=== PATIENT | female | born 1955 | race Caucasian/White ===

== ENCOUNTER 2018-12-11 12:30 | Outpatient (CLI) | payer MEDICARE, OTHER ==
--- NOTE | 2018-12-12 08:28 | MMO ---
Bilateral MAMMO Bilat Screen [facility]. CLINICAL HISTORY: Patient is 63 years old and is seen for screening. The patient has the following family history of breast cancer: maternal aunt. The patient has no personal history of cancer. The patient has a history of right Cyst Aspiration at age 11 - benign - 3 cysts removed. VIEWS: The views performed were: bilateral craniocaudal and bilateral mediolateral oblique. FILMS COMPARED: The present examination has been compared to prior imaging studies performed at [facility] on 11/06/2011 and 11/07/2012, and at [facility] on 06/27/2006, 09/13/2007 and 09/14/2008. MAMMOGRAM FINDINGS: There are scattered fibroglandular densities. There are benign appearing calcifications seen in the right breast. There are no suspicious masses, calcifications or areas of architectural distortion. IMPRESSION: CALCIFICATIONS IN THE RIGHT BREAST ARE BENIGN. A ROUTINE FOLLOW-UP MAMMOGRAM IN 1 YEAR IS RECOMMENDED. THE RESULTS OF THIS EXAM WERE SENT TO THE PATIENT. ACR BI-RADS Category 2 - Benign finding MAMMOGRAPHY NOTE: 1. A negative mammogram report should not delay a biopsy if a dominant of clinically suspicious mass is present. 2. Approximately 10% to 15% of breast cancers are not detected by mammography. 3. Adenosis and dense breasts may obscure an underlying neoplasm.
== END 2018-12-11 12:31 | disposition home or self-care (01) ==
LOC: BICMAMMO 12:30
PROVIDERS: ATTEND Family Medicine
DX: Z12.31 Encounter for screening mammogram for malignant neoplasm of breast (principal); R92.1 Mammographic calcification found on diagnostic imaging of breast; Z80.3 Family history of malignant neoplasm of breast
CPT/HCPCS: 77063; 77067

== ENCOUNTER 2021-03-03 11:02 | Outpatient (CLI) | payer MEDICARE, OTHER | END 2021-03-03 11:03 | disposition home or self-care (01) | LOC: BICMAMMO 11:02 | PROVIDERS: ATTEND Family Medicine | DX: Z12.31 Encounter for screening mammogram for malignant neoplasm of breast (principal); Z98.890 Other specified postprocedural states | CPT/HCPCS: 77063; 77067 ==

== ENCOUNTER 2022-10-29 03:58 | Inpatient (IN) | payer MEDICARE, OTHER ==
[2022-10-29] MEDS ORDERED: Albuterol 2.5 MG/0.5 ML NEB ONE (04:32)
[2022-10-29 04:58] LABS: #Lymphocytes 1.9 thou/uL (1.20-3.40); #Monocytes 0.4 thou/uL (0.11-0.59); %Basophils 0.5 % (0.0-1.0); %Eosinophils 0.2 % (0.0-10.0); %Lymphocytes 20.3 % (21.0-51.0); %Monocytes 4.6 % (0.0-10.0); %Neutrophils 74.4 % (42.0-75.0); Hemoglobin 16.3 g/dL (12.0-16.0); Mean Corpuscular HGB CONC 33.3 g/dL (32.0-36.0); Mean Corpuscular Hemoglobin 31.1 pg (27.0-31.0); Mean Corpuscular Volume 93.4 fl (78.0-98.0); Mean Platelet Volume 9.4 fL (7.4-10.4); Platelet Count 213 10x3/uL (130-400); RBC Distribution Width 13.2 % (11.5-14.5); Red Blood Cell (RBC) Count 5.24 mill/uL (4.20-5.40); White Blood Cell (WBC) Count 9.5 10x3/uL (4.8-10.8)
[2022-10-29 05:25] LABS: SARS-CoV-2 NAA Rapid Test Not Detected (NotDetected)
[2022-10-29 06:49] LABS: ALT (SGPT) 24 U/L (8-55); AST (SGOT) 30 U/L (5-34); Albumin 3.7 g/dL (3.4-4.8); Alkaline Phosphatase 67 U/L (40-110); Anion Gap 14 mmol/L (10-20); BUN (Urea Nitrogen) 16 mg/dL (9.8-20.1); Bilirubin, Total 0.2 mg/dL (0.2-1.2); Calc. Creatinine Clearance 0 mL/min (70-130); Calcium 8.9 mg/dL (7.8-10.44); Carbon Dioxide 23 mmol/L (23-31); Chloride 108 mmol/L (98-107); Estimated GFR 62; Glucose 129 mg/dL (80-115); Magnesium 1.8 mg/dL (1.6-2.6); Potassium 3.9 mmol/L (3.5-5.1); Protein, Total 6.7 g/dL (5.8-8.1); Sodium 141 mmol/L (136-145)
[2022-10-29] MEDS ORDERED: Ipratropium/Albuterol 3 ML NEB NEB PRN (08:29)
[2022-10-29] MEDS ORDERED: guaiFENesin 200 MG TAB PO PRN (08:29)
[2022-10-29] MEDS ORDERED: Ondansetron PF 4 MG/2 ML Vial IVP PRN (08:30)
[2022-10-29] MEDS ORDERED: Acetaminophen 325 MG TAB PO PRN (08:30)
[2022-10-29] MEDS ORDERED: predniSONE 20 MG TAB PO SCH (08:30)
[2022-10-29] MEDS ORDERED: Senokot S 8.6-50 MG TAB PO PRN (08:30)
[2022-10-29] MEDS ORDERED: Ondansetron ODT 4 MG TAB PO PRN (08:30)
[2022-10-29] MEDS: Famotidine 20 MG TAB PO SCH ×2 (10:54→20:25)
[2022-10-29] MEDS: Nicotine 21 MG PATCH TD SCH (10:55)
[2022-10-29] MEDS: Ipratropium/Albuterol 3 ML NEB NEB SCH ×4 (11:09→23:55)
[2022-10-29 11:14] VITALS: BMI 21.0
[2022-10-29] MEDS: Arformoterol 15 MCG/2 ML NEB NEB SCH (19:16)
[2022-10-30] MEDS: Ipratropium/Albuterol 3 ML NEB NEB SCH ×6 (03:08→23:58)
[2022-10-30 06:30] LABS: #Lymphocytes 1.6 thou/uL (1.20-3.40); #Monocytes 0.4 thou/uL (0.11-0.59); #Neutrophils 3.6 thou/uL (1.40-6.50); %Basophils 0.4 % (0.0-1.0); %Eosinophils 0.3 % (0.0-10.0); %Lymphocytes 28.5 % (21.0-51.0); %Monocytes 6.9 % (0.0-10.0); Hemoglobin 14.4 g/dL (12.0-16.0); Mean Corpuscular HGB CONC 32.7 g/dL (32.0-36.0); Mean Corpuscular Hemoglobin 30.3 pg (27.0-31.0); Mean Corpuscular Volume 92.5 fl (78.0-98.0); Mean Platelet Volume 7.6 fL (7.4-10.4); Platelet Count 194 10x3/uL (130-400); RBC Distribution Width 12.1 % (11.5-14.5); Red Blood Cell (RBC) Count 4.75 mill/uL (4.20-5.40); White Blood Cell (WBC) Count 5.6 10x3/uL (4.8-10.8)
[2022-10-30 06:53] LABS: ALT (SGPT) 20 U/L (8-55); AST (SGOT) 14 U/L (5-34); Albumin 3.2 g/dL (3.4-4.8); Alkaline Phosphatase 63 U/L (40-110); Anion Gap 8 mmol/L (10-20); BUN (Urea Nitrogen) 18 mg/dL (9.8-20.1); Bilirubin, Total 0.5 mg/dL (0.2-1.2); Calc. Creatinine Clearance 54 mL/min (70-130); Calcium 9.2 mg/dL (7.8-10.44); Carbon Dioxide 33 mmol/L (23-31); Chloride 103 mmol/L (98-107); Estimated GFR 76; Globulin 2.9 g/dL (2.4-3.5); Glucose 96 mg/dL (80-115); Potassium 4.1 mmol/L (3.5-5.1); Protein, Total 6.1 g/dL (5.8-8.1); Sodium 140 mmol/L (136-145)
[2022-10-30] MEDS: Arformoterol 15 MCG/2 ML NEB NEB SCH ×2 (06:58→18:56)
[2022-10-30] MEDS: Famotidine 20 MG TAB PO SCH (09:21)
[2022-10-30] MEDS: Nicotine 21 MG PATCH TD SCH (09:22)
[2022-10-30] MEDS: methylPREDNISolone Sod Succ 40 MG VIAL IVP SCH ×2 (10:19→20:59)
[2022-10-30] MEDS: guaiFENesin ER 600 MG TAB PO SCH ×2 (10:19→20:59)
[2022-10-30] MEDS ORDERED: Acetaminophen/Codeine 30-300mg Tablet PO PRN (15:38)
[2022-10-30] MEDS ORDERED: Temazepam 15 MG CAP PO PRN (15:53)
[2022-10-30] MEDS ORDERED: Sertraline 100 MG TAB PO SCH (21:00)
[2022-10-30] MEDS ORDERED: Atorvastatin Calcium 10 MG TAB PO SCH (21:00)
[2022-10-31] MEDS: Ipratropium/Albuterol 3 ML NEB NEB SCH ×3 (03:44→10:56)
[2022-10-31] MEDS: Arformoterol 15 MCG/2 ML NEB NEB SCH (06:34)
[2022-10-31 07:43] LABS: #Lymphocytes 0.9 thou/uL (1.20-3.40); #Monocytes 0.3 thou/uL (0.11-0.59); #Neutrophils 5.5 thou/uL (1.40-6.50); %Lymphocytes 14.1 % (21.0-51.0); %Monocytes 3.9 % (0.0-10.0); %Neutrophils 81.9 % (42.0-75.0); Mean Corpuscular HGB CONC 34.2 g/dL (32.0-36.0); Mean Corpuscular Volume 93.6 fl (78.0-98.0); Platelet Count 214 10x3/uL (130-400); Red Blood Cell (RBC) Count 5.01 mill/uL (4.20-5.40); White Blood Cell (WBC) Count 6.7 10x3/uL (4.8-10.8)
[2022-10-31 07:53] LABS: ALT (SGPT) 19 U/L (8-55); AST (SGOT) 14 U/L (5-34); Albumin 3.6 g/dL (3.4-4.8); Alkaline Phosphatase 63 U/L (40-110); Anion Gap 15 mmol/L (10-20); BUN (Urea Nitrogen) 24 mg/dL (9.8-20.1); Bilirubin, Total 0.6 mg/dL (0.2-1.2); Calc. Creatinine Clearance 55 mL/min (70-130); Calcium 9.7 mg/dL (7.8-10.44); Carbon Dioxide 29 mmol/L (23-31); Chloride 100 mmol/L (98-107); Estimated GFR 80; Globulin 3.1 g/dL (2.4-3.5); Glucose 109 mg/dL (80-115); Potassium 4.6 mmol/L (3.5-5.1); Protein, Total 6.7 g/dL (5.8-8.1); Sodium 139 mmol/L (136-145)
[2022-10-31 08:28] VITALS: BP 124/57; TEMP 97.6
[2022-10-31] MEDS: methylPREDNISolone Sod Succ 40 MG VIAL IVP SCH (08:43)
[2022-10-31] MEDS: guaiFENesin ER 600 MG TAB PO SCH (08:43)
[2022-10-31] MEDS: Nicotine 21 MG PATCH TD SCH (08:43)
[2022-10-31] MEDS ORDERED: Cholecalciferol 1,000 UNITS (25 MCG) TAB PO SCH (09:00)
[2022-10-31] MEDS ORDERED: Amlodipine 10 MG TAB PO SCH (09:00)
[2022-10-31] MEDS ORDERED: Aspirin Chewable 81 MG TAB PO SCH (09:00)
== END 2022-10-31 12:28 | disposition home or self-care (01) | DRG 189 ==
LOC: SUATTDRO 03:58 → ERS 03:58 → ERHOLD 08:07 → T4-A 10:26 → OBSVTOIN 10-30 15:13
PROVIDERS: ADMIT Internal Medicine; ATTEND Family Medicine
DX: J96.21 Acute and chronic respiratory failure with hypoxia (principal); J44.1 Chronic obstructive pulmonary disease with (acute) exacerbation; I10 Essential (primary) hypertension; F17.210 Nicotine dependence, cigarettes, uncomplicated; F43.10 Post-traumatic stress disorder, unspecified; F41.9 Anxiety disorder, unspecified; E78.5 Hyperlipidemia, unspecified; Z79.51 Long term (current) use of inhaled steroids; Z79.82 Long term (current) use of aspirin; Z79.899 Other long term (current) drug therapy; Z98.890 Other specified postprocedural states; Z90.710 Acquired absence of both cervix and uterus; Z90.49 Acquired absence of other specified parts of digestive tract; Z98.42 Cataract extraction status, left eye; Z98.41 Cataract extraction status, right eye; Z82.49 Family history of ischemic heart disease and other diseases of the circulatory system; Z20.822 Contact with and (suspected) exposure to COVID-19; Z99.81 Dependence on supplemental oxygen
CPT/HCPCS: 36415; 71045; 80053; 83735; 83880; 84484; 85025; 93005; 94640; 96372; 96374; 96375; G0378; J1650; J1956; J2920; J7512; J7611; J7620; U0002

== ENCOUNTER 2022-12-14 23:24 | Emergency (ER) | payer MEDICARE, OTHER ==
[2022-12-14] MEDS ORDERED: Magnesium 2 GM/50 ML BAG (IN WATER) ONE (23:47)
[2022-12-14] MEDS ORDERED: Ipratropium/Albuterol 3 ML NEB ONE (23:47)
[2022-12-15 00:13] LABS: #Eosinphils 0.1 thou/uL (0.0-0.7); #Lymphocytes 0.7 thou/uL (1.20-3.40); #Monocytes 0.2 thou/uL (0.11-0.59); #Neutrophils 5.3 thou/uL (1.40-6.50); %Basophils 0.2 % (0.0-1.0); %Eosinophils 1.7 % (0.0-10.0); %Lymphocytes 10.8 % (21.0-51.0); %Monocytes 3.6 % (0.0-10.0); %Neutrophils 83.6 % (42.0-75.0); Hemoglobin 13.7 g/dL (12.0-16.0); Mean Corpuscular HGB CONC 31.5 g/dL (32.0-36.0); Mean Corpuscular Hemoglobin 28.5 pg (27.0-31.0); Mean Corpuscular Volume 90.6 fl (78.0-98.0); Mean Platelet Volume 8.9 fL (7.4-10.4); Platelet Count 182 10x3/uL (130-400); RBC Distribution Width 14.6 % (11.5-14.5); White Blood Cell (WBC) Count 6.4 10x3/uL (4.8-10.8)
[2022-12-15 00:34] LABS: ALT (SGPT) 17 U/L (8-55); AST (SGOT) 18 U/L (5-34); Albumin 3.4 g/dL (3.4-4.8); Alkaline Phosphatase 70 U/L (40-110); Anion Gap 11 mmol/L (10-20); BUN (Urea Nitrogen) 15 mg/dL (9.8-20.1); Bilirubin, Total 0.7 mg/dL (0.2-1.2); Calc. Creatinine Clearance 0 mL/min (70-130); Calcium 8.8 mg/dL (7.8-10.44); Carbon Dioxide 32 mmol/L (23-31); Chloride 102 mmol/L (98-107); Estimated GFR 66; Glucose 127 mg/dL (80-115); Lipase 28 U/L (8-78); Magnesium 1.8 mg/dL (1.6-2.6); Potassium 3.9 mmol/L (3.5-5.1); Protein, Total 6.4 g/dL (5.8-8.1); Sodium 141 mmol/L (136-145)
[2022-12-15 03:48] LABS: SARS-CoV-2 NAA Rapid Test Not Detected (NotDetected)
== END 2022-12-15 01:50 | disposition home or self-care (01) ==
LOC: ERS 23:24
DX: J18.9 Pneumonia, unspecified organism (principal); J44.1 Chronic obstructive pulmonary disease with (acute) exacerbation; E78.00 Pure hypercholesterolemia, unspecified; I10 Essential (primary) hypertension; F17.210 Nicotine dependence, cigarettes, uncomplicated; Z20.822 Contact with and (suspected) exposure to COVID-19
CPT/HCPCS: 71045; 80053; 83690; 83735; 85025; 93005; 96365; 99284; U0002; 36415; J3475; J7620

== ENCOUNTER 2023-04-23 10:22 | Inpatient (IN) | payer MEDICARE, OTHER ==
[2023-04-23 10:58] LABS: Actual Bicarbonate (HCO3v) 26.9 mEq/L (22-28); Analyzer IN Cardio ER; Base Excess 1.7 mEq/L (-2.0 to +3.0); Calcium, Ionized (venous) 1.01 mmol/L (1.16-1.32); Chloride (VBG) 102 mmol/L (98-106); Hematocrit-VBG 45 % (36.0-47.0); Hemoglobin (Hb) 15.2 g/dL (11.7-16.1); Potassium (VBG) 4.46 mmol/L (3.70-5.30); Sodium 137.4 mmol/L (133-146)
[2023-04-23 11:02] LABS: #Eosinphils 0.1 thou/uL (0.0-0.7); #Monocytes 0.5 thou/uL (0.11-0.59); %Basophils 0.7 % (0.0-1.0); %Lymphocytes 19.7 % (21.0-51.0); %Monocytes 9.4 % (0.0-10.0); %Neutrophils 68.7 % (42.0-75.0); Hemoglobin 13.9 g/dL (12.0-16.0); Mean Corpuscular HGB CONC 29.9 g/dL (32.0-36.0); Mean Corpuscular Hemoglobin 24.3 pg (27.0-31.0); Mean Corpuscular Volume 81.4 fl (78.0-98.0); Mean Platelet Volume 9.8 fL (7.4-10.4); Platelet Count 198 10x3/uL (130-400); RBC Distribution Width 17.4 % (11.5-14.5); Red Blood Cell (RBC) Count 5.71 mill/uL (4.20-5.40); White Blood Cell (WBC) Count 5.8 10x3/uL (4.8-10.8)
[2023-04-23] MEDS ORDERED: methylPREDNISolone Sod Succ/PF 125 MG/2 ML VIAL ONE (11:04)
[2023-04-23] MEDS ORDERED: Magnesium 2 GM/50 ML BAG (IN WATER) ONE (11:04)
[2023-04-23 11:26] LABS: ALT (SGPT) 16 U/L (8-55); AST (SGOT) 20 U/L (5-34); Albumin 3.6 g/dL (3.4-4.8); Alkaline Phosphatase 79 U/L (40-110); Anion Gap 16 mmol/L (10-20); BUN (Urea Nitrogen) 20 mg/dL (9.8-20.1); Bilirubin, Total 0.8 mg/dL (0.2-1.2); Calc. Creatinine Clearance 0 mL/min (70-130); Carbon Dioxide 25 mmol/L (23-31); Chloride 100 mmol/L (98-107); Estimated GFR 78; Globulin 3.4 g/dL (2.4-3.5); Glucose 99 mg/dL (80-115); Potassium 4.2 mmol/L (3.5-5.1); Sodium 137 mmol/L (136-145)
[2023-04-23 11:43] LABS: SARS-CoV-2 NAA Rapid Test Not Detected (NotDetected)
[2023-04-23] MEDS ORDERED: cefTRIAXone (ROCEPHIN) 2 GM VIAL ONE (12:22)
[2023-04-23] MEDS ORDERED: Azithromycin 500 MG VIAL ONE (12:22)
[2023-04-23 15:45] VITALS: BMI 20.4
[2023-04-23] MEDS ORDERED: Ondansetron PF 4 MG/2 ML Vial IVP PRN (15:51)
[2023-04-23] MEDS ORDERED: Acetaminophen 650 MG Suppository PR PRN (15:51)
[2023-04-23] MEDS ORDERED: Ondansetron ODT 4 MG TAB PO PRN (15:51)
[2023-04-23] MEDS ORDERED: Acetaminophen 325 MG TAB PO PRN (15:51)
[2023-04-23] MEDS: methylPREDNISolone Sod Succ 40 MG VIAL IVP SCH (16:40)
[2023-04-23 17:16] LABS: Base Excess 2.6 mEq/L (-2.0 to +3.0); Calcium, Ionized (venous) 1.02 mmol/L (1.16-1.32); Chloride (VBG) 100 mmol/L (98-106); Hematocrit-VBG 43 % (36.0-47.0); Hemoglobin (Hb) 14.5 g/dL (11.7-16.1); Potassium (VBG) 4.39 mmol/L (3.70-5.30); Sodium 136.3 mmol/L (133-146); pH (venous) 7.369 (7.32-7.43)
[2023-04-23] MEDS: Ipratropium/Albuterol 3 ML NEB NEB SCH (19:01)
[2023-04-23 21:10] VITALS: BP 103/59
[2023-04-23] MEDS ORDERED: Benzonatate 100 MG CAP PO PRN (22:12)
[2023-04-23] MEDS ORDERED: Ipratropium/Albuterol 3 ML NEB NEB PRN (22:17)
[2023-04-24] MEDS: methylPREDNISolone Sod Succ 40 MG VIAL IVP SCH ×4 (01:24→17:32)
[2023-04-24] MEDS: Ipratropium/Albuterol 3 ML NEB NEB SCH ×5 (01:49→22:20)
[2023-04-24 04:23] LABS: #Monocytes 0.2 thou/uL (0.11-0.59); #Neutrophils 2.1 thou/uL (1.40-6.50); %Basophils 0.4 % (0.0-1.0); %Lymphocytes 12.5 % (21.0-51.0); %Monocytes 5.7 % (0.0-10.0); Hemoglobin 12.9 g/dL (12.0-16.0); Mean Corpuscular HGB CONC 29.7 g/dL (32.0-36.0); Mean Corpuscular Hemoglobin 23.8 pg (27.0-31.0); Mean Corpuscular Volume 80.4 fl (78.0-98.0); Platelet Count 190 10x3/uL (130-400); RBC Distribution Width 17.3 % (11.5-14.5); Red Blood Cell (RBC) Count 5.41 mill/uL (4.20-5.40); White Blood Cell (WBC) Count 2.6 10x3/uL (4.8-10.8)
[2023-04-24 04:38] LABS: Anion Gap 16 mmol/L (10-20); BUN (Urea Nitrogen) 26 mg/dL (9.8-20.1); Calc. Creatinine Clearance 49 mL/min (70-130); Calcium 8.8 mg/dL (7.8-10.44); Carbon Dioxide 27 mmol/L (23-31); Chloride 102 mmol/L (98-107); Estimated GFR 68; Glucose 127 mg/dL (80-115); Potassium 4.6 mmol/L (3.5-5.1); Sodium 140 mmol/L (136-145)
[2023-04-24] MEDS: Famotidine 20 MG TAB PO SCH ×2 (09:01→19:54)
[2023-04-24] MEDS ORDERED: Azithromycin 500 MG in Sodium Chloride 0.9% 250 ML 250 ML IVPB SCH (13:00)
[2023-04-24] MEDS: cefTRIAXone\\ROCEPHIN 1 GM in Sodium Chloride 0.9% 100 ML IVPB SCH (13:15)
[2023-04-25] MEDS: methylPREDNISolone Sod Succ 40 MG VIAL IVP SCH ×3 (00:14→11:22)
[2023-04-25 04:09] LABS: #Monocytes 0.1 thou/uL (0.11-0.59); #Neutrophils 5.1 thou/uL (1.40-6.50); %Monocytes 2.5 % (0.0-10.0); Hemoglobin 13.1 g/dL (12.0-16.0); Mean Corpuscular HGB CONC 29.3 g/dL (32.0-36.0); Mean Corpuscular Hemoglobin 23.8 pg (27.0-31.0); Mean Corpuscular Volume 81.1 fl (78.0-98.0); Mean Platelet Volume 10.6 fL (7.4-10.4); Platelet Count 212 10x3/uL (130-400); RBC Distribution Width 17.4 % (11.5-14.5); Red Blood Cell (RBC) Count 5.51 mill/uL (4.20-5.40); White Blood Cell (WBC) Count 5.6 10x3/uL (4.8-10.8)
[2023-04-25 04:30] LABS: Anion Gap 14 mmol/L (10-20); BUN (Urea Nitrogen) 24 mg/dL (9.8-20.1); Calc. Creatinine Clearance 54 mL/min (70-130); Calcium 9.4 mg/dL (7.8-10.44); Carbon Dioxide 27 mmol/L (23-31); Chloride 102 mmol/L (98-107); Estimated GFR 81; Glucose 131 mg/dL (80-115); Potassium 4.6 mmol/L (3.5-5.1); Sodium 138 mmol/L (136-145)
[2023-04-25 07:14] VITALS: TEMP 98.4
[2023-04-25] MEDS: Ipratropium/Albuterol 3 ML NEB NEB SCH ×2 (07:21→13:19)
[2023-04-25] MEDS: Famotidine 20 MG TAB PO SCH (09:14)
[2023-04-25] MEDS: cefTRIAXone\\ROCEPHIN 1 GM in Sodium Chloride 0.9% 100 ML IVPB SCH (11:22)
== END 2023-04-25 14:00 | disposition home or self-care (01) | DRG 193 ==
LOC: ERS 10:22 → T4-A 15:12 → IMCU/EMU 21:17
PROVIDERS: ADMIT Internal Medicine; ATTEND Family Medicine
PROC: 4A043R1 Measurement of Venous Saturation, Peripheral, Percutaneous Approach (ICD-10-PCS; principal; 2023-04-23)
DX: J18.9 Pneumonia, unspecified organism (principal); J96.21 Acute and chronic respiratory failure with hypoxia; J96.22 Acute and chronic respiratory failure with hypercapnia; J44.1 Chronic obstructive pulmonary disease with (acute) exacerbation; J44.0 Chronic obstructive pulmonary disease with (acute) lower respiratory infection; Q60.0 Renal agenesis, unilateral; R64 Cachexia; D75.89 Other specified diseases of blood and blood-forming organs; E78.00 Pure hypercholesterolemia, unspecified; I10 Essential (primary) hypertension; F41.9 Anxiety disorder, unspecified; F32.A Depression, unspecified; F17.210 Nicotine dependence, cigarettes, uncomplicated; F43.10 Post-traumatic stress disorder, unspecified; Z20.822 Contact with and (suspected) exposure to COVID-19; Z90.49 Acquired absence of other specified parts of digestive tract; Z90.710 Acquired absence of both cervix and uterus; Z79.899 Other long term (current) drug therapy; Z79.82 Long term (current) use of aspirin; Z98.41 Cataract extraction status, right eye; Z98.42 Cataract extraction status, left eye; Z71.6 Tobacco abuse counseling; Z99.81 Dependence on supplemental oxygen
CPT/HCPCS: 36415; 71045; 80048; 80053; 82805; 83605; 84484; 85025; 87070; 87205; 93005; 94640; 94760; 96365; 96367; 96375; J0456; J0696; J2920; J2930; J3475; J3490; J7050; J7611; J7620

== ENCOUNTER 2024-02-12 09:09 | Inpatient (IN) | payer MEDICARE, OTHER ==
[2024-02-12 10:29] LABS: Influenza A by NAA Not Detected (NotDetected); Influenza B by NAA Not Detected (NotDetected); SARS-CoV-2 NAA Rapid Test Not Detected (NotDetected)
[2024-02-12 10:39] LABS: Globulin 3.8 g/dL (2.4-3.5)
[2024-02-12 10:44] LABS: ALT (SGPT) 10 U/L (8-55); AST (SGOT) 18 U/L (5-34); Albumin 3.4 g/dL (3.4-4.8); Alkaline Phosphatase 94 U/L (40-110); Anion Gap 15 mmol/L (10-20); BUN (Urea Nitrogen) 11 mg/dL (9.8-20.1); Bilirubin, Total 0.8 mg/dL (0.2-1.2); Calc. Creatinine Clearance 0 mL/min (70-130); Calcium 9.1 mg/dL (7.8-10.44); Carbon Dioxide 24 mmol/L (23-31); Chloride 107 mmol/L (98-107); Estimated GFR 83; Glucose 134 mg/dL (80-115); Potassium 3.5 mmol/L (3.5-5.1); Protein, Total 7.2 g/dL (5.8-8.1); Sodium 142 mmol/L (136-145)
[2024-02-12 10:48] LABS: #Basophils 0.03 10x3/uL (0.0-0.2); %Basophils 0.5 % (0.0-1.0); %Eosinophils 0.7 % (0.0-10.0); %Lymphocytes 13.3 % (21.0-51.0); %Monocytes 3.2 % (0.0-10.0); %Neutrophils 81.9 % (42.0-75.0); Hematocrit 50.3 % (36.0-47.0); Hemoglobin 13.8 g/dL (12.0-16.0); Mean Corpuscular HGB CONC 27.4 g/dL (32.0-36.0); Mean Corpuscular Hemoglobin 23.1 pg (27.0-31.0); Mean Corpuscular Volume 84.1 fL (78.0-98.0); Mean Platelet Volume 11.1 fL (7.4-10.4); Platelet Count 190 10x3/uL (130-400); RBC Distribution Width 18.3 % (11.5-14.5); Red Blood Cell (RBC) Count 5.98 mill/uL (4.20-5.40)
[2024-02-12] MEDS ORDERED: Magnesium 2 GM/50 ML BAG (IN WATER) ONE (10:49)
[2024-02-12] MEDS ORDERED: Cefepime 1 GM VIAL ONE (11:02)
[2024-02-12] MEDS ORDERED: Sodium Chloride 0.9% 100 ML ONE (11:02)
[2024-02-12] MEDS ORDERED: Albuterol 2.5 MG (3 mL) NEB ONE ×2 (11:06→11:53)
[2024-02-12] MEDS ORDERED: Ipratropium Bromide 2.5 ml Neb ONE ×2 (11:07→11:53)
[2024-02-12 11:28] LABS: Platelet Adequacy Comment Platelets Normal; Polychromasia SLIGHT = 2-3 cells HPF (0-2)
[2024-02-12] MEDS ORDERED: LevoFLOXacin D5W 500 mg (100 mL) BAG ONE (11:46)
[2024-02-12 12:02] LABS: Actual Bicarbonate (HCO3a) 29.7 mEq/L (22-28); Analyzer IN Cardio ER; Base Excess (BEa) 1.1 mEq/L (-2.0 to +3.0); Carboxyhemoglobin (COHb) 7.8 gm% (0.0-3.0); Hematocrit-ABG 41 % (36.0-47.0); Hemoglobin (Hb) 13.8 g/dL (12.0-16.0); O2 Tension (PaO2), arterial 62.3 mmHg (> 80.0); Potassium - ABG Lab 3.72 mmol/L (3.70-5.30); pH, Arterial 7.272 (7.35-7.45)
[2024-02-12 12:03] LABS: CO2 Tension 65.8 mmHg (35.0-45.0); Puncture Site RBA
[2024-02-12 12:16] LABS: Troponin I Less than 0.010 ng/mL (< 0.028)
[2024-02-12 12:17] LABS: Actual Bicarbonate (HCO3a) 26.1 mEq/L (22-28); Analyzer IN Cardio ER; Base Excess (BEa) -3.1 mEq/L (-2.0 to +3.0); Calcium, Ionized (arterial) 1.18 mmol/L (1.12-1.30); Carboxyhemoglobin (COHb) 6.4 gm% (0.0-3.0); Hematocrit-ABG 39 % (36.0-47.0); Hemoglobin (Hb) 13.4 g/dL (12.0-16.0); O2 Tension (PaO2), arterial 77.2 mmHg (> 80.0); Potassium - ABG Lab 3.68 mmol/L (3.70-5.30); pH, Arterial 7.211 (7.35-7.45)
[2024-02-12 12:29] LABS: ALV-art Gradient 231.825 mmHg (0-20); CO2 Tension 66.5 mmHg (35.0-45.0); Puncture Site RBA
[2024-02-12] MEDS ORDERED: Ipratropium/Albuterol 3 ML NEB NEB PRN (13:49)
[2024-02-12] MEDS ORDERED: Acetaminophen 325 MG TAB PO PRN (13:52)
[2024-02-12] MEDS ORDERED: Senokot S 8.6-50 MG TAB PO PRN (13:52)
[2024-02-12] MEDS ORDERED: Ondansetron ODT 4 MG TAB PO PRN (13:52)
[2024-02-12] MEDS ORDERED: Ondansetron PF 4 MG/2 ML Vial IVP PRN (13:52)
[2024-02-12] MEDS ORDERED: hydrALAZINE 20 MG/ML VIAL SLOW IVP PRN (13:52)
[2024-02-12] MEDS: Ipratropium/Albuterol 3 ML NEB NEB SCH (14:51)
[2024-02-12] MEDS: methylPREDNISolone Sod Succ 40 MG VIAL IVP SCH (18:01)
[2024-02-12] MEDS: Mometasone 200 MCG/Formoterol 5 MCG 120 PUFF INHALER INH SCH (19:13)
[2024-02-12] MEDS: Famotidine 20 MG TAB PO SCH (21:09)
[2024-02-12] MEDS: Cefepime 1 GM in Sodium Chloride 0.9% 100 ML IVPB SCH (23:43)
[2024-02-13 06:32] LABS: #Basophils Less than 0.03 10x3/uL (0.0-0.2); #Eosinphils Less than 0.03 10x3/uL (0.0-0.7); %Lymphocytes 6.8 % (21.0-51.0); %Monocytes 3.4 % (0.0-10.0); %Neutrophils 89.4 % (42.0-75.0); Hematocrit 39.5 % (36.0-47.0); Hemoglobin 11.4 g/dL (12.0-16.0); Mean Corpuscular HGB CONC 28.9 g/dL (32.0-36.0); Mean Corpuscular Hemoglobin 23.4 pg (27.0-31.0); Mean Corpuscular Volume 81.1 fL (78.0-98.0); Mean Platelet Volume 10.7 fL (7.4-10.4); Platelet Count 182 10x3/uL (130-400); RBC Distribution Width 17.1 % (11.5-14.5); Red Blood Cell (RBC) Count 4.87 mill/uL (4.20-5.40)
[2024-02-13 06:43] LABS: Globulin 3.3 g/dL (2.4-3.5)
[2024-02-13 06:47] LABS: ALT (SGPT) 10 U/L (8-55); AST (SGOT) 15 U/L (5-34); Alkaline Phosphatase 80 U/L (40-110); Anion Gap 14 mmol/L (10-20); BUN (Urea Nitrogen) 17 mg/dL (9.8-20.1); Bilirubin, Total 0.7 mg/dL (0.2-1.2); Calc. Creatinine Clearance 32 mL/min (70-130); Carbon Dioxide 25 mmol/L (23-31); Chloride 105 mmol/L (98-107); Estimated GFR 85; Glucose 138 mg/dL (80-115); Magnesium 2.2 mg/dL (1.6-2.6); Protein, Total 6.3 g/dL (5.8-8.1); Sodium 140 mmol/L (136-145)
[2024-02-13 06:51] LABS: Hypochromia SLIGHT = 6-15 cells HPF (0-5); Platelet Adequacy Comment Platelets Normal; Polychromasia SLIGHT = 2-3 cells HPF (0-2)
[2024-02-13] MEDS ORDERED: ALPRAZolam 0.25 MG TAB PO PRN (12:08)
[2024-02-13] MEDS: LevoFLOXacin 500 mg/D5W 500 MG in Premix 1 BAG IVPB SCH (13:08)
[2024-02-13] MEDS: ALPRAZolam 0.25 MG TAB PO SCH (13:09)
[2024-02-13] MEDS: Pantoprazole DR 40 MG TAB PO SCH (20:34)
[2024-02-13] MEDS: Temazepam 15 MG CAP PO SCH (20:34)
[2024-02-13] MEDS: Atorvastatin Calcium 20 MG TAB PO SCH (20:34)
[2024-02-13] MEDS: Sertraline 100 MG TAB PO SCH (20:34)
[2024-02-13] MEDS: Famotidine 20 MG TAB PO SCH (20:34)
[2024-02-13] MEDS ORDERED: Non-Formulary Item 1 EACH (Omeprazole [Omeprazole] 20 MG Tablet.Dr) PO SCH (21:00)
[2024-02-13] MEDS ORDERED: Non-Formulary Item 1 EACH (Temazepam [Temazepam] 30 MG Capsule) PO SCH (21:00)
[2024-02-13] MEDS ORDERED: Atorvastatin Calcium 10 MG TAB PO SCH (21:00)
[2024-02-13] MEDS ORDERED: Non-Formulary Item 1 EACH (Sertraline Hcl [Zoloft] 50 MG Tab) PO SCH (21:00)
[2024-02-14 05:51] VITALS: BMI 11.2
[2024-02-14 07:55] LABS: #Basophils Less than 0.03 10x3/uL (0.0-0.2); #Eosinphils Less than 0.03 10x3/uL (0.0-0.7); %Lymphocytes 4.7 % (21.0-51.0); %Monocytes 2.9 % (0.0-10.0); %Neutrophils 92.1 % (42.0-75.0); Hematocrit 40.9 % (36.0-47.0); Hemoglobin 11.7 g/dL (12.0-16.0); Mean Corpuscular HGB CONC 28.6 g/dL (32.0-36.0); Mean Corpuscular Hemoglobin 22.9 pg (27.0-31.0); Mean Platelet Volume 10.9 fL (7.4-10.4); Platelet Count 206 10x3/uL (130-400); RBC Distribution Width 17.2 % (11.5-14.5); Red Blood Cell (RBC) Count 5.11 mill/uL (4.20-5.40)
[2024-02-14 08:12] LABS: ALT (SGPT) 13 U/L (8-55); AST (SGOT) 32 U/L (5-34); Albumin 2.9 g/dL (3.4-4.8); Alkaline Phosphatase 72 U/L (40-110); Anion Gap 12 mmol/L (10-20); BUN (Urea Nitrogen) 28 mg/dL (9.8-20.1); Bilirubin, Total 0.8 mg/dL (0.2-1.2); Calc. Creatinine Clearance 33 mL/min (70-130); Calcium 9.3 mg/dL (7.8-10.44); Carbon Dioxide 28 mmol/L (23-31); Chloride 106 mmol/L (98-107); Estimated GFR 88; Glucose 128 mg/dL (80-115); Potassium 4.8 mmol/L (3.5-5.1); Protein, Total 5.9 g/dL (5.8-8.1); Sodium 141 mmol/L (136-145)
[2024-02-14] MEDS ORDERED: Cholecalciferol 1,000 UNITS (25 MCG) TAB PO SCH (09:00)
[2024-02-14] MEDS: Amlodipine 10 MG TAB PO SCH (09:09)
[2024-02-14] MEDS: Cholecalciferol 1,000 UNITS (25 MCG) TAB PO SCH (09:09)
[2024-02-14] MEDS: Aspirin Chewable 81 MG TAB PO SCH (09:10)
[2024-02-14] MEDS: LevoFLOXacin 250 mg/D5W 250 MG in Premix 1 BAG IVPB SCH (12:33)
[2024-02-14] MEDS: methylPREDNISolone Sod Succ 40 MG VIAL IVP SCH (21:16)
[2024-02-16] MEDS ORDERED: Sodium Chloride 0.65% Nasal 44 ML BOT EA NARE PRN (14:17)
[2024-02-16] MEDS: guaiFENesin ER 600 MG TAB PO SCH (21:08)
[2024-02-17] MEDS: LevoFLOXacin 500 MG TAB PO SCH (05:55)
[2024-02-18] MEDS ORDERED: Ipratropium/Albuterol 3 ML NEB NEB PRN (12:15)
[2024-02-18] MEDS: Ipratropium/Albuterol 3 ML NEB NEB SCH (14:06)
[2024-02-19 08:11] VITALS: BP 118/56
[2024-02-19] MEDS: predniSONE 20 MG TAB PO SCH (08:11)
[2024-02-19 11:30] VITALS: TEMP 98
== END 2024-02-19 14:07 | disposition home health service (06) | DRG 189 ==
LOC: ERS 09:09 → IMCU/EMU 13:54 → 2NO 02-18 20:00
PROVIDERS: ADMIT Internal Medicine; ATTEND Internal Medicine
PROC: 5A09357 Assistance with Respiratory Ventilation, Less than 24 Consecutive Hours, Continuous Positive Airway Pressure (ICD-10-PCS; principal; 2024-02-13)
DX: J96.21 Acute and chronic respiratory failure with hypoxia (principal); J44.1 Chronic obstructive pulmonary disease with (acute) exacerbation; J96.22 Acute and chronic respiratory failure with hypercapnia; D75.1 Secondary polycythemia; F41.9 Anxiety disorder, unspecified; E78.5 Hyperlipidemia, unspecified; F17.210 Nicotine dependence, cigarettes, uncomplicated; I10 Essential (primary) hypertension; F43.10 Post-traumatic stress disorder, unspecified; Z90.49 Acquired absence of other specified parts of digestive tract; Z90.710 Acquired absence of both cervix and uterus; Z79.52 Long term (current) use of systemic steroids; Z99.81 Dependence on supplemental oxygen; Z79.82 Long term (current) use of aspirin; Z79.899 Other long term (current) drug therapy; Z71.6 Tobacco abuse counseling
CPT/HCPCS: 36415; 36600; 71045; 80053; 82805; 83605; 83735; 84484; 85025; 87040; 93005; 94640; 94644; 94660; 94760; 96365; 96367; J0692; J1956; J2920; J3475; J3490; J7512; J7611; J7620

== ENCOUNTER 2024-09-19 14:53 | Inpatient (IN) | payer MEDICARE, OTHER ==
[2024-09-19] MEDS ORDERED: Magnesium 2 GM/50 ML BAG (IN WATER) ONE (15:10)
[2024-09-19 15:30] LABS: #Basophils 0.03 10x3/uL (0.0-0.2); %Basophils 0.8 % (0.0-1.0); %Eosinophils 2.1 % (0.0-10.0); %Monocytes 5.4 % (0.0-10.0); %Neutrophils 72.2 % (42.0-75.0); Hematocrit 38.6 % (36.0-47.0); Hemoglobin 11.1 g/dL (12.0-16.0); Mean Corpuscular HGB CONC 28.8 g/dL (32.0-36.0); Mean Corpuscular Hemoglobin 24.4 pg (27.0-31.0); Mean Corpuscular Volume 84.8 fL (78.0-98.0); Mean Platelet Volume 10.4 fL (7.4-10.4); Platelet Count 223 10x3/uL (130-400); RBC Distribution Width 16.4 % (11.5-14.5); Red Blood Cell (RBC) Count 4.55 mill/uL (4.20-5.40)
[2024-09-19 15:44] LABS: PTT 24.5 sec (22.9-36.1); Prothrombin Time 12.9 sec (12.0-14.7)
[2024-09-19 15:47] LABS: ALT (SGPT) 6 U/L (8-55); AST (SGOT) 15 U/L (5-34); Albumin 3.1 g/dL (3.4-4.8); Alkaline Phosphatase 82 U/L (40-110); Anion Gap 14 mmol/L (10-20); BUN (Urea Nitrogen) 15 mg/dL (9.8-20.1); Bilirubin, Total 0.8 mg/dL (0.2-1.2); Calc. Creatinine Clearance 0 mL/min (70-130); Calcium 8.7 mg/dL (7.8-10.44); Carbon Dioxide 29 mmol/L (23-31); Chloride 104 mmol/L (98-107); Estimated GFR 95; Globulin 3.6 g/dL (2.4-3.5); Glucose 116 mg/dL (80-115); Protein, Total 6.7 g/dL (5.8-8.1); Sodium 144 mmol/L (136-145)
[2024-09-19 15:51] LABS: Hypochromia SLIGHT = 6-15 cells HPF (0-5); Platelet Adequacy Comment Platelets Normal; Polychromasia SLIGHT = 2-3 cells HPF (0-2)
[2024-09-19 15:53] LABS: Troponin I Less than 0.010 ng/mL (< 0.028)
[2024-09-19] MEDS ORDERED: Ondansetron ODT 4 MG TAB PO PRN (16:57)
[2024-09-19] MEDS ORDERED: Ondansetron PF 4 MG/2 ML Vial IVP PRN (16:57)
[2024-09-19] MEDS ORDERED: Senokot S 8.6-50 MG TAB PO PRN (16:57)
[2024-09-19] MEDS ORDERED: Bisacodyl 5 MG TAB PO PRN (16:57)
[2024-09-19] MEDS ORDERED: Acetaminophen 325 MG TAB PO PRN (16:57)
[2024-09-19] MEDS ORDERED: Albuterol 2.5 MG (3 mL) NEB NEB PRN (16:57)
[2024-09-19] MEDS ORDERED: Acetaminophen 650 MG Suppository PR PRN (16:57)
[2024-09-19] MEDS ORDERED: Sodium Chloride 0.9% 100 ML ONE (17:32)
[2024-09-19] MEDS ORDERED: cefTRIAXone (ROCEPHIN) 1 GM VIAL ONE (17:32)
[2024-09-19] MEDS: cefTRIAXone\\ROCEPHIN 1 GM in Sodium Chloride 0.9% 100 ML IVPB SCH (21:00)
[2024-09-19] MEDS: Azithromycin 500 MG in Sodium Chloride 0.9% 250 ML 250 ML IVPB SCH (21:01)
[2024-09-19] MEDS ORDERED: Azithromycin 500 MG VIAL ONE (21:02)
[2024-09-19] MEDS ORDERED: Ipratropium/Albuterol 3 ML NEB ONE ×2 (21:07→21:16)
[2024-09-19 21:09] VITALS: BMI 22.4
[2024-09-19] MEDS: Ipratropium/Albuterol 3 ML NEB NEB SCH (21:18)
[2024-09-19] MEDS: methylPREDNISolone Sod Succ 40 MG VIAL IVP SCH (21:20)
[2024-09-19] MEDS ORDERED: guaiFENesin ER 600 MG TAB ONE (22:50)
[2024-09-19] MEDS: guaiFENesin ER 600 MG TAB PO SCH (22:53)
[2024-09-20] MEDS ORDERED: Ipratropium/Albuterol 3 ML NEB ONE (00:43)
[2024-09-20 05:52] LABS: #Basophils Less than 0.03 10x3/uL (0.0-0.2); #Eosinophils Less than 0.03 10x3/uL (0.0-0.7); %Basophils 0.3 % (0.0-1.0); %Lymphocytes 12.9 % (21.0-51.0); %Monocytes 10.3 % (0.0-10.0); %Neutrophils 76.2 % (42.0-75.0); Hematocrit 38.8 % (36.0-47.0); Hemoglobin 11.1 g/dL (12.0-16.0); Mean Corpuscular HGB CONC 28.6 g/dL (32.0-36.0); Mean Corpuscular Hemoglobin 24.3 pg (27.0-31.0); Mean Corpuscular Volume 85.1 fL (78.0-98.0); Mean Platelet Volume 10.6 fL (7.4-10.4); Platelet Count 242 10x3/uL (130-400); RBC Distribution Width 16.3 % (11.5-14.5); Red Blood Cell (RBC) Count 4.56 mill/uL (4.20-5.40)
[2024-09-20 06:32] LABS: Hypochromia SLIGHT = 6-15 cells HPF (0-5); Platelet Adequacy Comment Platelets Normal; Polychromasia SLIGHT = 2-3 cells HPF (0-2)
[2024-09-20 06:38] LABS: Anion Gap 19 mmol/L (10-20); BUN (Urea Nitrogen) 18 mg/dL (9.8-20.1); Calc. Creatinine Clearance 59 mL/min (70-130); Calcium 8.6 mg/dL (7.8-10.44); Carbon Dioxide 26 mmol/L (23-31); Chloride 103 mmol/L (98-107); Estimated GFR 77; Glucose 130 mg/dL (80-115); Potassium 3.2 mmol/L (3.5-5.1); Sodium 145 mmol/L (136-145)
[2024-09-20] MEDS: Pantoprazole DR 40 MG TAB PO SCH (09:02)
[2024-09-20] MEDS: Benzonatate 100 MG CAP PO PRN (09:02)
[2024-09-20] MEDS: Ipratropium/Albuterol 3 ML NEB NEB SCH ×2 (14:58→15:08)
[2024-09-20] MEDS ORDERED: Albuterol 200 PUFF INH INH SCH (18:30)
[2024-09-20] MEDS: Melatonin 3 MG TAB PO PRN (20:26)
[2024-09-20] MEDS: Atorvastatin Calcium 20 MG TAB PO SCH (20:26)
[2024-09-20] MEDS: Sertraline 100 MG TAB PO SCH (20:26)
[2024-09-21 05:28] LABS: ALT (SGPT) 6 U/L (8-55); AST (SGOT) 17 U/L (5-34); Albumin 3.1 g/dL (3.4-4.8); Alkaline Phosphatase 74 U/L (40-110); Anion Gap 13 mmol/L (10-20); BUN (Urea Nitrogen) 18 mg/dL (9.8-20.1); Bilirubin, Total 0.5 mg/dL (0.2-1.2); Calc. Creatinine Clearance 68 mL/min (70-130); Calcium 8.8 mg/dL (7.8-10.44); Carbon Dioxide 29 mmol/L (23-31); Chloride 104 mmol/L (98-107); Estimated GFR 92; Globulin 3.5 g/dL (2.4-3.5); Glucose 122 mg/dL (80-115); Potassium 3.6 mmol/L (3.5-5.1); Protein, Total 6.6 g/dL (5.8-8.1); Sodium 142 mmol/L (136-145)
[2024-09-21 05:29] LABS: #Basophils Less than 0.03 10x3/uL (0.0-0.2); #Eosinophils Less than 0.03 10x3/uL (0.0-0.7); %Lymphocytes 7.1 % (21.0-51.0); %Monocytes 2.1 % (0.0-10.0); %Neutrophils 90.3 % (42.0-75.0); Hematocrit 36.5 % (36.0-47.0); Hemoglobin 10.8 g/dL (12.0-16.0); Mean Corpuscular HGB CONC 29.6 g/dL (32.0-36.0); Mean Corpuscular Hemoglobin 24.4 pg (27.0-31.0); Mean Corpuscular Volume 82.4 fL (78.0-98.0); Mean Platelet Volume 10.2 fL (7.4-10.4); Platelet Count 240 10x3/uL (130-400); RBC Distribution Width 16.4 % (11.5-14.5); Red Blood Cell (RBC) Count 4.43 mill/uL (4.20-5.40)
[2024-09-21] MEDS: Aspirin Chewable 81 MG TAB PO SCH (08:45)
[2024-09-21] MEDS: Cholecalciferol 1,000 UNITS (25 MCG) TAB PO SCH (08:46)
[2024-09-21] MEDS: Pantoprazole DR 40 MG TAB PO SCH (08:46)
[2024-09-21] MEDS: Temazepam 15 MG CAP PO SCH (20:33)
[2024-09-22 06:18] LABS: #Basophils Less than 0.03 10x3/uL (0.0-0.2); #Eosinophils Less than 0.03 10x3/uL (0.0-0.7); %Lymphocytes 7.4 % (21.0-51.0); %Monocytes 4.5 % (0.0-10.0); %Neutrophils 87.8 % (42.0-75.0); Hematocrit 34.8 % (36.0-47.0); Hemoglobin 10.2 g/dL (12.0-16.0); Mean Corpuscular HGB CONC 29.3 g/dL (32.0-36.0); Mean Corpuscular Hemoglobin 23.8 pg (27.0-31.0); Mean Corpuscular Volume 81.1 fL (78.0-98.0); Mean Platelet Volume 11.1 fL (7.4-10.4); Platelet Count 230 10x3/uL (130-400); RBC Distribution Width 16.5 % (11.5-14.5); Red Blood Cell (RBC) Count 4.29 mill/uL (4.20-5.40)
[2024-09-22 06:52] LABS: ALT (SGPT) 9 U/L (8-55); AST (SGOT) 17 U/L (5-34); Albumin 2.8 g/dL (3.4-4.8); Alkaline Phosphatase 60 U/L (40-110); Anion Gap 13 mmol/L (10-20); BUN (Urea Nitrogen) 25 mg/dL (9.8-20.1); Bilirubin, Total 0.4 mg/dL (0.2-1.2); Calc. Creatinine Clearance 60 mL/min (70-130); Calcium 8.7 mg/dL (7.8-10.44); Carbon Dioxide 28 mmol/L (23-31); Chloride 106 mmol/L (98-107); Estimated GFR 80; Globulin 3.1 g/dL (2.4-3.5); Glucose 130 mg/dL (80-115); Potassium 3.8 mmol/L (3.5-5.1); Protein, Total 5.9 g/dL (5.8-8.1); Sodium 143 mmol/L (136-145)
[2024-09-22] MEDS: methylPREDNISolone Sod Succ 40 MG VIAL IVP SCH (20:34)
[2024-09-23 05:02] LABS: #Basophils Less than 0.03 10x3/uL (0.0-0.2); #Eosinophils Less than 0.03 10x3/uL (0.0-0.7); %Monocytes 6.2 % (0.0-10.0); %Neutrophils 83.3 % (42.0-75.0); Hematocrit 34.6 % (36.0-47.0); Hemoglobin 10.3 g/dL (12.0-16.0); Mean Corpuscular HGB CONC 29.8 g/dL (32.0-36.0); Mean Corpuscular Volume 80.5 fL (78.0-98.0); Mean Platelet Volume 9.9 fL (7.4-10.4); Platelet Count 211 10x3/uL (130-400); RBC Distribution Width 16.5 % (11.5-14.5)
[2024-09-23 05:24] LABS: ALT (SGPT) 8 U/L (8-55); AST (SGOT) 14 U/L (5-34); Albumin 2.8 g/dL (3.4-4.8); Alkaline Phosphatase 57 U/L (40-110); Anion Gap 11 mmol/L (10-20); BUN (Urea Nitrogen) 25 mg/dL (9.8-20.1); Bilirubin, Total 0.4 mg/dL (0.2-1.2); Calc. Creatinine Clearance 69 mL/min (70-130); Calcium 8.4 mg/dL (7.8-10.44); Carbon Dioxide 27 mmol/L (23-31); Chloride 105 mmol/L (98-107); Estimated GFR 94; Globulin 2.8 g/dL (2.4-3.5); Glucose 122 mg/dL (80-115); Potassium 4.1 mmol/L (3.5-5.1); Protein, Total 5.6 g/dL (5.8-8.1); Sodium 139 mmol/L (136-145)
[2024-09-23] MEDS ORDERED: Ipratropium/Albuterol 3 ML NEB NEB PRN (11:21)
[2024-09-23] MEDS: guaiFENesin/DM ER PO SCH ×2 (11:28→20:57)
[2024-09-23] MEDS: Furosemide 40 MG TAB PO SCH (11:28)
[2024-09-23] MEDS: Ipratropium/Albuterol 3 ML NEB NEB SCH (20:10)
[2024-09-24 06:52] LABS: #Basophils Less than 0.03 10x3/uL (0.0-0.2); #Eosinophils Less than 0.03 10x3/uL (0.0-0.7); %Lymphocytes 11.7 % (21.0-51.0); %Monocytes 5.6 % (0.0-10.0); %Neutrophils 82.2 % (42.0-75.0); Hematocrit 37.2 % (36.0-47.0); Hemoglobin 10.8 g/dL (12.0-16.0); Mean Corpuscular Hemoglobin 23.7 pg (27.0-31.0); Mean Corpuscular Volume 81.8 fL (78.0-98.0); Mean Platelet Volume 10.5 fL (7.4-10.4); Platelet Count 244 10x3/uL (130-400); RBC Distribution Width 16.3 % (11.5-14.5); Red Blood Cell (RBC) Count 4.55 mill/uL (4.20-5.40)
[2024-09-24 07:16] LABS: ALT (SGPT) 12 U/L (8-55); AST (SGOT) 15 U/L (5-34); Albumin 2.9 g/dL (3.4-4.8); Alkaline Phosphatase 58 U/L (40-110); Anion Gap 11 mmol/L (10-20); BUN (Urea Nitrogen) 25 mg/dL (9.8-20.1); Bilirubin, Total 0.5 mg/dL (0.2-1.2); Calc. Creatinine Clearance 65 mL/min (70-130); Calcium 8.5 mg/dL (7.8-10.44); Carbon Dioxide 32 mmol/L (23-31); Chloride 103 mmol/L (98-107); Estimated GFR 88; Globulin 2.8 g/dL (2.4-3.5); Glucose 105 mg/dL (80-115); Potassium 3.7 mmol/L (3.5-5.1); Protein, Total 5.7 g/dL (5.8-8.1); Sodium 142 mmol/L (136-145)
[2024-09-24 13:31] VITALS: BP 148/66; TEMP 97.9
[2024-09-25] MEDS ORDERED: predniSONE 20 MG TAB PO SCH (08:00)
== END 2024-09-24 13:55 | disposition home or self-care (01) | DRG 193 ==
LOC: ERS 14:53 → ERHOLD 16:49 → OBS 09-20 03:50
PROVIDERS: ADMIT Family Medicine; ATTEND Internal Medicine
DX: J18.9 Pneumonia, unspecified organism (principal); J96.01 Acute respiratory failure with hypoxia; J44.1 Chronic obstructive pulmonary disease with (acute) exacerbation; I10 Essential (primary) hypertension; E78.5 Hyperlipidemia, unspecified; F43.10 Post-traumatic stress disorder, unspecified; F41.9 Anxiety disorder, unspecified; F32.A Depression, unspecified; Z90.49 Acquired absence of other specified parts of digestive tract; Z90.710 Acquired absence of both cervix and uterus; Z98.41 Cataract extraction status, right eye; Z98.42 Cataract extraction status, left eye; Z79.899 Other long term (current) drug therapy
CPT/HCPCS: 36415; 71045; 71275; 80048; 80053; 83880; 84145; 84484; 85025; 85610; 85730; 87040; 87070; 87077; 87086; 87186; 87205; 87428; 93306; 96365; 96366; 96367; J0456; J0696; J2919; J3475; J7050; J7620

== ENCOUNTER 2024-11-20 10:05 | Outpatient (CLI) | payer MEDICARE, OTHER | END 2024-11-20 10:06 | disposition home or self-care (01) | LOC: RAD 10:05 | PROVIDERS: ATTEND Internal Medicine Critical Care Medicine | DX: R06.00 Dyspnea, unspecified (principal); R91.8 Other nonspecific abnormal finding of lung field | CPT/HCPCS: 71046 ==